=== PATIENT | female | born 1935 | race Caucasian/White ===

== ENCOUNTER 2017-06-16 11:40 | Emergency (ER) | payer MEDICARE, BC ==
[2006-10-19 07:09] VITALS: BP 139/78
[~2017-06-16] VITALS: Ht 152.4 cm; Wt 50.9 kg
[~2017-06-16 11:40] MED LIST: AMOXICILLIN/CLA1 TA1 PO; ANTIVERT 25MG25 MG PO; ASPI325T6 PO; ASPIRIN 81M81 MG/TA2 PO; ATENOLOL PO; BP MED PO; CALCIUM CARBONATE; DITROPAN 5MG TAB5 MG PO; FISH OIL500 MG PO; MACRODANTIN50 MG/CA1 PO; MULTIVITAMIN1 SGL PO; OXYBUTYNIN5 MG PO; PERCOCET 325 MG1 TA2 PO; PIROXICAN10 MG PO; PROTONIX 40MG T40 MG PO; REMERON 15M15 MG/TA1 PO; STOOL SOFTENER100 M1 PO; TOPROL XL200 MG PO; TUMS500 MG; ULTRAM 50MG TAB50 MG PO
[2017-06-16 11:45] VITALS: TEMP 99
[2017-06-16 13:04] LABS: COLLECTION METHOD CATHETER
[2017-06-16 13:08] LABS: BASO % 0.3 % (0.0-2.0); EOS % 0.3 % (0-4.0); GRAN # 4.7 (1.4-6.5); GRAN % 67.6 % (42.2-75.2); HEMATOCRIT 39.4 % (37.0-47.0); HEMOGLOBIN 12.1 g/dl (12.5-16.0); LYMPH # 1.3 (1.2-3.4); LYMPH % 18.2 % (20.0-51.0); MEAN CELL VOLUME 86 fl (80.0-100.0); MEAN CORPUSCULAR HEMOGLOBIN 27 pg (27.0-31.0); MEAN CORPUSCULAR HGB CONC 31 g/dl (33.0-37.0); MEAN PLATELET VOLUME 10.3 fl (7.4-10.4); MONO # 0.9 (0.1-0.6); PLATELET COUNT 382 K/mm3 (130-400); RED BLOOD COUNT 4.56 M/mm3 (4.10-5.30); REDCELL DISTRIBUTION WIDTH-CV 14.4 % (11.5-14.5)
[2017-06-16 13:22] LABS: ALBUMIN 3.6 gm/dL (3.5-5.0); BILIRUBIN,TOTAL 0.4 mg/dL (0.0-1.0); C-REACTIVE PROTEIN 3.4 mg/dL (0.0-0.9); CALCIUM 8.9 mg/dL (8.4-10.2); CREATININE, serum 0.85 mg/dL (0.52-1.25); POTASSIUM 4.1 mmol/L (3.4-5.0); TOTAL PROTEIN 6.9 gm/dL (6.4-8.2)
[2017-06-16 13:23] LABS: MUCOUS Present /lpf; PH 5 (5-8); SQUAMOUS EPITHELIAL 0-2 /hpf; URINE APPEARANCE Hazy; URINE BACTERIA Many /hpf; URINE BILIRUBIN Negative (NEGATIVE); URINE BLOOD 2+ (NEGATIVE); URINE COLOR Yellow; URINE GLUCOSE Negative (NEGATIVE); URINE KETONE Negative (NEGATIVE); URINE LEUKOCYTE ESTERASE Negative (NEGATIVE); URINE NITRATE Positive (NEGATIVE); URINE PROTEIN(semi-quant) Negative (NEGATIVE); URINE RBC 0-2 /hpf; URINE UROBILINOGEN Negative (NEGATIVE)
[2017-06-16] MEDS ORDERED: CLEOCIN HCL300 MG PO (15:14)
[2017-06-16] MEDS ORDERED: LEVAQUIN 750MG750 M1 PO (15:14)
[2017-06-16 16:49] VITALS: BP 149/73; PULSE 77
== END 2017-06-16 16:54 ==
LOC: COL.ER 11:40
PROVIDERS: Emergency Medicine
DX: J69.0 Pneumonitis due to inhalation of food and vomit (principal); I10 Essential (primary) hypertension; F32.9 Major depressive disorder, single episode, unspecified; Z87.440 Personal history of urinary (tract) infections; Z79.82 Long term (current) use of aspirin
CPT/HCPCS: J0360